=== PATIENT | female | born 1970 | race African-American/Black ===

== ENCOUNTER 2016-11-05 12:00 | Emergency (ER) | payer BC, OTHER ==
[~2016-11-05] VITALS: Ht 162.6 cm; Wt 82.7 kg
[2016-11-05] MEDS ORDERED: MECLIZINE CHEWABLE 25 MG TAB ONE (12:52)
[2016-11-05] MEDS ORDERED: MECLIZINE CHEWABLE 25 MG TAB PO ONE (13:00)
[2016-11-05] MEDS ORDERED: SODIUM CHLORIDE FLUSH 10ML SYR IVF ONE (13:00)
[2016-11-05] MEDS ORDERED: SODIUM CHLORIDE 0.9% 1,000ML IVBOLUS ONE (13:00)
[2016-11-05 13:22] LABS: BLOOD UREA NITROGEN 8 mg/dL (7-18)
[2016-11-05 13:30] LABS: HEMOGLOBIN 13.6 g/dL (11.7-16.4)
[2016-11-05] MEDS ORDERED: LABETALOL 5MG/ML, 20ML ONE (13:49)
[2016-11-05] MEDS ORDERED: LABETALOL 5MG/ML, 20ML IVPush ONE (14:00)
[2016-11-05] MEDS ORDERED: HYDROcodone/APAP 5/325 TABLET ONE (14:06)
[2016-11-05] MEDS ORDERED: IBUPROFEN 200 MG TABLET ONE (14:11)
[2016-11-05 14:12] VITALS: BP 168/97
[2016-11-05] MEDS ORDERED: IBUPROFEN 200 MG TABLET PO ONE ×2 (14:30)
[2016-11-05] MEDS ORDERED: HYDROcodone/APAP 5/325 TABLET PO ONE (14:30)
== END 2016-11-05 14:31 | disposition home or self-care (01) ==
LOC: ED 14:25
DX: H81.11 Benign paroxysmal vertigo, right ear (principal); I10 Essential (primary) hypertension
CPT/HCPCS: 36415; 80048; 82040; 84703; 85025; 93005; 96374; 99285; J7030